=== PATIENT | female | born 1990 | race Hispanic/Latino ===

== ENCOUNTER 2017-08-11 17:57 | Emergency (ER) | payer MEDICAID ==
[2017-08-11 18:44] VITALS: BP 117/69
[2017-08-11 20:31] LABS: Bacteria,Urine 1+ /HPF (Negative); Bilirubin,Urine NEG (Negative); Blood,Urine NEG (Negative); Color,Urine Yellow (Yellow); Mucus,Urine 1+ /HPF; Protein,Urine <15 mg/dL mg/dL (Negative); WBC,Urine < 1.0 /HPF (0.0-6.0)
== END 2017-08-12 03:30 | disposition left against medical advice (07) ==
LOC: TRG 17:57 → ED 17:57 → TRG 17:59 → EDSTATUS 18:13 → ED 08-12 03:30
DX: O47.9 False labor, unspecified (principal); Z3A.00 Weeks of gestation of pregnancy not specified; Z53.21 Procedure and treatment not carried out due to patient leaving prior to being seen by health care provider
CPT/HCPCS: 81001

== ENCOUNTER 2017-12-11 15:26 | Outpatient (CLI) | payer MEDICAID ==
[2017-12-11] MEDS ORDERED: LACTATED RINGERS 500 ML IV ONE (16:31)
[2017-12-11 17:16] VITALS: BP 131/72
[2017-12-11 17:26] LABS: Hematocrit 35.1 % (30.3-42.9); Hemoglobin 11.9 gm/dl (10.1-14.3); Mean Corpuscular HGB Conc 34 % (30-34); Mean Corpuscular Hemoglobin 29 pg (28-32); Mean Corpuscular Volume 84 fl (79-97); Platelet Count 266 K/mm3 (140-440); Red Blood Count 4.15 M/mm3 (3.65-5.03); Red Cell Distribution Width 12.8 % (13.2-15.2)
[2017-12-11 17:38] LABS: Bilirubin,Urine NEG (Negative); Blood,Urine NEG (Negative); Mucus,Urine 3+ /HPF
[2017-12-11 17:39] LABS: Color,Urine Dark Yellow (Yellow)
[2017-12-11 18:03] LABS: Alanine Aminotransferase 18 units/L (7-56); Albumin 3.6 g/dL (3.9-5); BUN/Creatinine Ratio 13; Blood Urea Nitrogen 5 mg/dL (7-17); Hemolysis Index 4
[2017-12-11] MEDS ORDERED: ceFAZolin 2 GM in NACL 0.9% 100 ML IV ONE (18:45)
== END 2017-12-11 20:50 | disposition home or self-care (01) ==
LOC: TRG 15:26
PROVIDERS: ATTEND Obstetrics & Gynecology
DX: O47.03 False labor before 37 completed weeks of gestation, third trimester (principal); Z3A.35 35 weeks gestation of pregnancy
CPT/HCPCS: 36415; 80053; 81001; 85027; J0690; J7120

== ENCOUNTER 2018-01-11 07:14 | Outpatient (CLI) | payer MEDICAID ==
[2018-01-11 07:49] VITALS: BP 107/70
== END 2018-01-11 09:45 | disposition home or self-care (01) ==
LOC: TRG 07:14
PROVIDERS: ATTEND Obstetrics & Gynecology
DX: O47.1 False labor at or after 37 completed weeks of gestation (principal); Z3A.39 39 weeks gestation of pregnancy
CPT/HCPCS: 59025

== ENCOUNTER 2020-05-22 18:20 | Emergency (ER) | payer MEDICAID ==
[2020-05-22 18:35] VITALS: BP 109/68
[2020-05-22] MEDS ORDERED: ONDANSETRON 4 MG ODT TAB PO ONE (18:53)
[2020-05-22] MEDS ORDERED: DICYCLOMINE 20 MG TAB PO ONE (18:53)
--- NOTE | 2020-05-22 19:00 | Event Note ---
ED Screening Note Date of service: 05/22/20 Time: 18:57 ED Screening Note: Patient is A0 30-year-old female with no past medical history presents to the ED with acute onset persistent periumbilical abdominal pain that radiates to the lower abdomen and epigastric area for the last 4 days. Patient states that she was initially evaluated by the [facility] and is scheduled for abdomen pelvis CT scan with contrast in the next 7 days, and is currently on empirical oral antibiotics Flagyl 500 mg 3 times a day and ciprofloxacin 500 mg twice a day with Pepcid 20 mg nightly. Patient states that she started these medications 2 days ago and developed tingling sensation on her throat, generalized weakness, worsening abdominal pain and lightheadedness. Patient denies diarrhea, vomiting, chest pain, shortness of breath, itchy rashes, swollen lips and throat, dysphagia, dysphonia, dysuria, urinary frequency and urgency, dizziness and headache, vaginal bleeding, vaginal discharge or dyspareunia. This initial assessment/diagnostic orders/clinical plan/treatment(s) is/are subject to change based on patients health status, clinical progression and re- assessment by fellow clinical providers in the ED. Further treatment and workup at subsequent clinical providers discretion. Patient/guardian urged not to elope from the ED as their condition may be serious if not clinically assessed and managed. Initial orders include: CBC, CMP, lipase, UA, hCG qualitative, abdomen pelvis CT scan w/contrast
[2020-05-22 19:52] LABS: Basophils % (Auto) 0.2 % (0.0-1.8); Eosinophils # (Auto) 0.3 K/mm3 (0.0-0.4); Eosinophils % (Auto) 3.3 % (0.0-4.3); Hematocrit 36.7 % (30.3-42.9); Hemoglobin 12.7 gm/dl (10.1-14.3); Lymphocytes % (Auto) 21.2 % (13.4-35.0); Mean Corpuscular HGB Conc 35 % (30-34); Mean Corpuscular Volume 86 fl (79-97); Monocytes # (Auto) 0.7 K/mm3 (0.0-0.8); Monocytes % (Auto) 7.1 % (0.0-7.3); Platelet Count 267 K/mm3 (140-440); Red Blood Count 4.29 M/mm3 (3.65-5.03)
[2020-05-22 19:55] LABS: Alanine Aminotransferase 13 units/L (7-56); Albumin 4.5 g/dL (3.9-5); BUN/Creatinine Ratio 17; Blood Urea Nitrogen 12 mg/dL (7-17); Calcium 9.5 mg/dL (8.4-10.2); Hemolysis Index 7
[2020-05-22 20:57] LABS: Bilirubin,Urine NEG (Negative); Blood,Urine NEG (Negative); Color,Urine Yellow (Yellow); Mucus,Urine FEW /HPF; Protein,Urine <15 mg/dL mg/dL (Negative); Urobilinogen,Urine < 2.0 mg/dL (<2.0)
[2020-05-22 21:01] LABS: RBC,Urine < 1.0 /HPF (0.0-6.0)
== END 2020-05-22 19:01 | disposition left against medical advice (07) ==
LOC: ED 18:20
DX: T78.40XA Allergy, unspecified, initial encounter (principal); Z53.21 Procedure and treatment not carried out due to patient leaving prior to being seen by health care provider
CPT/HCPCS: 36415; 80053; 81001; 83690; 84703; 85025